=== PATIENT | male | born 1995 | race Caucasian/White ===

== ENCOUNTER 2025-01-01 14:04 | Outpatient (AMB) | payer OTHER, SELFPAY ==
--- NOTE | 2025-01-01 14:09 | MHC.PC.OV ---
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 Intake Note: New patient visit Rn Peritoneal Dialysis Required: No Allergies cefprozil (From Cefzil) Allergy (Mild, Verified 01/01/25 14:13) Itching Medication List - Last Reconciled 01/01/25 by Laurel De La Rosa MD escitalopram oxalate 20 mg PO DAILY esomeprazole magnesium 40 mg PO DAILY sertraline 25 mg PO DAILY Tobacco use date assessed: 01/01/25 Dental Screening Dental Screen Date: 01/01/25 Did you have a dental visit in the last 12 months?: Yes Did you have a dental problem in the last 6 months where you did not have access to dental care?: No Was dental information given to patient?: Patient has dentist HPI HPI Comments History of Present Illness Details This is a 29 year old male with a past medical history of GERD, anxiety presenting to reestablish care/physical exam. Transferring from [facility] GERD-on esomeprazole 40mg daily. previously saw by Dr Menon. Had endoscopy Anxiety: on lexapro. Feels like it is not working as good as it was or anxiety levels at work are higher. Working at [employer]. ROS see HPI PHYSICAL EXAM: GENERAL: Alert and oriented x 3. NAD EYES: EOMI. Anicteric. HENT: Moist mucous membranes. No scleral icterus. No cervical lymphadenopathy. LUNGS: Clear to auscultation bilaterally. CARDIOVASCULAR: Regular rate and rhythm. No murmur. No JVD. ABDOMEN: Soft, non-tender +bs EXTREMITIES: No edema. Non-tender. SKIN: No rashes or lesions. Warm. NEUROLOGIC: No focal neurological deficits. CN II-XII grossly intact PSYCHIATRIC: Cooperative. 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 1. Little interest or pleasure in doing things: not at all 2. Feeling down, depressed, or hopeless: several days 3. Trouble falling or staying asleep, or sleeping too much: several days 4. Feeling tired or having little energy: several days 5. Poor appetite or overeating: not at all 6. Feeling bad about yourself - or that you are a failure or have let yourself or your family down: several days 7. Trouble concentrating on things, such as reading the newspaper or watching television: several days 8. Moving or speaking so slowly that other people could have noticed. Or the opposite - being so fidgety or restless that you have been moving around a lot more than usual: several days 9. Thoughts that you would be better off or of hurting yourself in some way: not at all Total score: 6 Depression Screening Interpretation: Positive Depression Screening Follow-up: New Medication prescribed Depression Screening Done: Yes 98100 - PHQ-9 Billing: Yes Source: Developed by Drs. Doug Jackson, Pepper Driver, Bernardo Pardo and colleagues, with an educational rajan from [employer]. Thrive Questionnaire Date Thrive assessed: 12/31/24 I am a: Patient What is your living situation today?: I have a steady place to live Within the past 12 months, did the food you bought not last and you didn't have the money to get more?: Never true Within the past 12 months, did you worry whether your food would run out before you got money to buy more?: Never true Do you have trouble paying for medicines?: No Do you have trouble getting transportation to medical appointments?: No Do you have trouble paying your heating and electricity bill?: No Do you have trouble taking care of your child, family member or friend?: No Do you have trouble with day-to-day activities such as bathing, preparing meals, shopping, managing finances, etc.?: No Are you currently unemployed and looking for a job?: No Are you interested in more education?: Yes Please select the resources that you would like help with: None Currently or been in a relationship where the following occur: I choose not to answer THRIVE Score: 0 AUDIT C Alcohol Use Questionnaire (AUDIT-C) 2. How many drinks containing alcohol do you have on a typical day when you are drinking?: 1 or 2 Total Score: 0 GARCIA-7 AMB Questionnaire GARCIA-7 Feeling nervous, anxious, or on edge: 3 = Nearly every day Not being able to stop or control worryin = Nearly every day Worrying too much about different things: 3 = Nearly every day Trouble relaxin = Several days Being so restless that it is hard to sit still: 1 = Several days Becoming easily annoyed or irritable: 1 = Several days Feeling afraid as if something awful might happen: 1 = Several days Total GARCIA-7 score (0-4 normal; 5-9 mild; 10-14 moderate; 15-21 severe): 13 Source: Developed by Drs. Doug Jackson, Pepper Driver, Bernardo Pardo and colleagues, with an educational rajan from [employer]. Physical exam (Primary Care) Vital Signs: Last Vital Signs Temp 98.5 F 01/01/25 14:16 Pulse 113 H 01/01/25 14:16 Resp 14 01/01/25 14:16 BP 126/64 01/01/25 14:16 Pulse Ox 95 01/01/25 14:16 Oxygen Delivery Method Room Air 01/01/25 14:16 BMI result Body Mass Index 29.1 Tobacco/Smoking Status: Tobacco use Status Tobacco use date assessed 01/01/25 01/01/25 14:19 Patient Tobacco Use Status Never used Tobacco 01/01/25 14:19 e-Cigarette/Vaping Use Currently Using 01/01/25 14:19 PHQ-9: PHQ-9 Score PHQ-9: Total score 6 01/01/25 14:47 Depression Screening Interpretation: Positive Depression Screening Follow-up: New Medication prescribed Thrive Assessment: Date of Thrive Assessment Date Thrive assessed 12/31/24 01/01/25 14:12 Currently or been in a relationship where the following occur: I choose not to answer Coding Level of Care Code Est Pt Level 4 (44931) Diagnoses Physical exam Z00.00 Gastroesophageal reflux disease, unspecified whether esophagitis present K21.9 Esophagitis presence: esophagitis presence not specified Anxiety F41.9 Additional Codes PHQ-9 - 41652 - PHQ-9 Billing: Yes ([id number]) Assessment & Plan Assessment & Plan (1) Physical exam: Code(s): Z00.00 - Encounter for general adult medical examination without abnormal findings (2) GERD (gastroesophageal reflux disease): Code(s): K21.9 - Gastro-esophageal reflux disease without esophagitis Category: Medical Qualifiers: Esophagitis presence: esophagitis presence not specified Qualified Code(s): K21.9 - Gastro-esophageal reflux disease without esophagitis (3) Anxiety: Code(s): F41.9 - Anxiety disorder, unspecified Category: Medical Plan 29 y/o to reestablish/CPE Interval history reviewed Anxiety-suboptimal control. Decrease then stop lexapro. Start zoloft. Follow up in six weeks Preventive measures for age discussed Medications: New sertraline Take one half tab oral once daily for one week then increase to one tablet oral once daily 25 mg PO DAILY 90 tabs 3RF esomeprazole magnesium 40 mg PO DAILY 90 caps 3RF
[2025-01-01 14:16] VITALS: BP 126/64; PULSE 113; RESP 14; TEMP 36.9; O2SAT 95; BMI 29.1
== END 2025-01-01 14:43 | disposition home or self-care (01) ==
LOC: HO.HMCFM 14:05
PROVIDERS: PCP Internal Medicine; Visit Provider Internal Medicine
DX: Z00.00 Encounter for general adult medical examination without abnormal findings (principal); K21.9 Gastro-esophageal reflux disease without esophagitis; F41.9 Anxiety disorder, unspecified

== ENCOUNTER → 2025-01-01 14:04 | Outpatient (BNVA) | payer OTHER, SELFPAY | PROVIDERS: PCP Internal Medicine; Visit Provider Internal Medicine | DX: Z00.00 Encounter for general adult medical examination without abnormal findings (principal); Z76.89 Persons encountering health services in other specified circumstances; K21.9 Gastro-esophageal reflux disease without esophagitis; F41.9 Anxiety disorder, unspecified; Z79.899 Other long term (current) drug therapy; Z13.31 Encounter for screening for depression | CPT/HCPCS: 96127; 99212 ==

== ENCOUNTER 2025-03-07 15:46 | Outpatient (AMB) | payer OTHER, SELFPAY ==
--- NOTE | 2025-03-07 15:38 | A.OFFPC_ITS ---
Intake Visit Reasons: med follow up Intake Note: patient here for med follow up Echo Vascular Technologist Required: No Allergies cefprozil (From Cefzil) Allergy (Mild, Verified 03/07/25 15:39) Itching Tobacco use date assessed: 03/07/25 Dental Screening Dental Screen Date: 03/07/25 Did you have a dental visit in the last 12 months?: Yes Did you have a dental problem in the last 6 months where you did not have access to dental care?: No Was dental information given to patient?: Patient has dentist HPI HPI Comments History of Present Illness Details This is a 29 year old male with a past medical history of GERD, anxiety presenting for follow up GERD-on esomeprazole 40mg daily. this is stable. previously saw by Dr Menon. Had endoscopy Anxiety: Transitioned from lexapro to zoloft 25mg at last visit. He is feeling better on the medication would like to increase slightly. He still has trouble sleeping at night 2/2 anxiety, interested in hydroxyzine. Working at [employer]. 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 Current occupational exposures/hazards: No Cognitive needs: No Hearing needs: No Vision needs: No Questionnaire Thrive Questionnaire Date Thrive assessed: 12/31/24 I am a: Patient What is your living situation today?: I have a steady place to live Within the past 12 months, did the food you bought not last and you didn't have the money to get more?: Never true Within the past 12 months, did you worry whether your food would run out before you got money to buy more?: Never true Do you have trouble paying for medicines?: No Do you have trouble getting transportation to medical appointments?: No Do you have trouble paying your heating and electricity bill?: No Do you have trouble taking care of your child, family member or friend?: No Do you have trouble with day-to-day activities such as bathing, preparing meals, shopping, managing finances, etc.?: No Are you currently unemployed and looking for a job?: No Are you interested in more education?: Yes Please select the resources that you would like help with: None Currently or been in a relationship where the following occur: I choose not to answer THRIVE Score: 0 Physical exam (Primary Care) Tobacco/Smoking Status: Tobacco use Status Tobacco use date assessed 03/07/25 03/07/25 15:40 Patient Tobacco Use Status Never used Tobacco 03/07/25 15:40 e-Cigarette/Vaping Use Currently Using 03/07/25 15:40 Thrive Assessment: Date of Thrive Assessment Date Thrive assessed 12/31/24 03/07/25 15:40 Currently or been in a relationship where the following occur: I choose not to answer Telehealth Telehealth Telehealth Platform: Telephone Location of provider rendering services: practice address Location of patient: address on file Patient Identification confirmed using: Name, : Yes Telehealth method: voice only Patient verbally consented to treatment: Yes Patient verbally consented to billing insurance company: Yes Patient informed of any privacy concerns related to visit: Yes Minutes spent on Phone/Video with Pt.: 22 Coding Level of Care Code Tele Est Pt Level 3 (92517) Diagnoses Anxiety F41.9 Gastroesophageal reflux disease, unspecified whether esophagitis present K21.9 Esophagitis presence: esophagitis presence not specified Assessment & Plan Assessment & Plan (1) Anxiety: Code(s): F41.9 - Anxiety disorder, unspecified Category: Medical (2) GERD (gastroesophageal reflux disease): Code(s): K21.9 - Gastro-esophageal reflux disease without esophagitis Category: Medical Qualifiers: Esophagitis presence: esophagitis presence not specified Qualified Code(s): K21.9 - Gastro-esophageal reflux disease without esophagitis Plan Anxiety has improved with transition to zoloft. increase to 50mg daily. Insomnia, nightime anxiety-start hydroxyzine 25-50mg nightly prn Medications: New sertraline 50 mg PO Q24H 90 tabs 3RF hydroxyzine HCl 50 mg PO BEDTIME 90 tabs 3RF Discontinued sertraline Take one half tab oral once daily for one week then increase to one tablet oral once daily Discontinued Reason: Doctor's Order 25 mg PO DAILY 90 tabs 3RF
== END 2025-03-07 16:49 | disposition home or self-care (01) ==
LOC: HO.HMCFM 15:46
PROVIDERS: PCP Internal Medicine; Visit Provider Internal Medicine
DX: F41.9 Anxiety disorder, unspecified (principal); K21.9 Gastro-esophageal reflux disease without esophagitis

== ENCOUNTER 2025-05-10 14:33 | Outpatient (AMB) | payer OTHER, SELFPAY ==
--- NOTE | 2025-05-10 14:42 | A.OFFPC_ITS ---
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 this is stable. previously saw by Dr Menon. Had endoscopy Anxiety: Transitioned from lexapro to zoloft 25mg then increased to 50mg daily. Anxiety is improved. Does endorse low energy, some sexual side effects. Still not sleeping well, snoring, frequent awakenings ROS see HPI PHYSICAL EXAM: GENERAL: Alert and oriented x 3. NAD EYES: EOMI. Anicteric. 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 Current occupational exposures/hazards: No Cognitive needs: No Hearing needs: No Vision needs: No Questionnaire Thrive Questionnaire Date Thrive assessed: 12/31/24 I am a: Patient What is your living situation today?: I have a steady place to live Within the past 12 months, did the food you bought not last and you didn't have the money to get more?: Never true Within the past 12 months, did you worry whether your food would run out before you got money to buy more?: Never true Do you have trouble paying for medicines?: No Do you have trouble getting transportation to medical appointments?: No Do you have trouble paying your heating and electricity bill?: No Do you have trouble taking care of your child, family member or friend?: No Do you have trouble with day-to-day activities such as bathing, preparing meals, shopping, managing finances, etc.?: No Are you currently unemployed and looking for a job?: No Are you interested in more education?: Yes Please select the resources that you would like help with: None Currently or been in a relationship where the following occur: I choose not to answer THRIVE Score: 0 AUDIT C Alcohol Use Questionnaire (AUDIT-C) 1. How often do you have a drink containing alcohol?: Monthly or less 2. How many drinks containing alcohol do you have on a typical day when you are drinking?: 1 or 2 3. How often do you have six or more drinks on one occasion?: Never Total Score: 1 Physical exam (Primary Care) Vital Signs: Last Vital Signs Temp 97.9 F 05/10/25 14:43 Pulse 108 H 05/10/25 14:43 Resp 14 05/10/25 14:43 BP 135/88 05/10/25 14:43 Pulse Ox 95 05/10/25 14:43 Oxygen Delivery Method Room Air 05/10/25 14:43 BMI result Body Mass Index 33.1 Tobacco/Smoking Status: Tobacco use Status Tobacco use date assessed 05/10/25 05/10/25 14:48 Patient Tobacco Use Status Never used Tobacco 05/10/25 14:48 e-Cigarette/Vaping Use Currently Using 05/10/25 14:48 Thrive Assessment: Date of Thrive Assessment Date Thrive assessed 12/31/24 05/10/25 14:48 Currently or been in a relationship where the following occur: I choose not to answer Coding Level of Care Code Est Pt Level 4 (26833) Diagnoses Fatigue, unspecified type R53.83 Fatigue type: unspecified Snoring R06.83 Anxiety F41.9 Assessment & Plan Assessment & Plan (1) Fatigue: Code(s): R53.83 - Other fatigue Category: Medical Qualifiers: Fatigue type: unspecified Qualified Code(s): R53.83 - Other fatigue (2) Snoring: Code(s): R06.83 - Snoring Category: Medical (3) Anxiety: Code(s): F41.9 - Anxiety disorder, unspecified Category: Medical Plan 29 year old presenting for follow up Snoring, fatigue-sleep study ordered Anxiety-stable on zoloft. Add wellbutrin Labs ordered Orders: Orders Testosterone, Free/Total Today F41.9 - Anxiety disorder, unspecified, R06.83 - Snoring, R53.83 - Other fatigue, Z13.220 - Encounter for screening for lipoid disorders Complete Blood Count Auto Diff Today F41.9 - Anxiety disorder, unspecified, R06.83 - Snoring, R53.83 - Other fatigue, Z13.220 - Encounter for screening for lipoid disorders IRON PROFILE Today F41.9 - Anxiety disorder, unspecified, R06.83 - Snoring, R53.83 - Other fatigue, Z13.220 - Encounter for screening for lipoid disorders Comprehensive Met. Panel Today F41.9 - Anxiety disorder, unspecified, R06.83 - Snoring, R53.83 - Other fatigue, Z13.220 - Encounter for screening for lipoid disorders Lipid Panel Today F41.9 - Anxiety disorder, unspecified, R06.83 - Snoring, R53.83 - Other fatigue, Z13.220 - Encounter for screening for lipoid disorders Vitamin B12 and Folate Today F41.9 - Anxiety disorder, unspecified, R06.83 - Snoring, R53.83 - Other fatigue, Z13.220 - Encounter for screening for lipoid disorders TSH reflex Free T4 Today F41.9 - Anxiety disorder, unspecified, R06.83 - Snoring, R53.83 - Other fatigue, Z13.220 - Encounter for screening for lipoid disorders Hemoglobin A1c Today R35.89 - Other polyuria Referrals Sleep Medicine Referral F41.9 - Anxiety disorder, unspecified, R06.83 - Snoring, R53.83 - Other fatigue, Z13.220 - Encounter for screening for lipoid disorders Medications: New bupropion HCl 75 mg PO DAILY 30 tabs 0RF
[2025-05-10 14:43] VITALS: BP 135/88; PULSE 108; RESP 14; TEMP 36.6; O2SAT 95; BMI 33.1
== END 2025-05-10 17:05 ==
LOC: HO.HMCFM 14:34
PROVIDERS: PCP Internal Medicine; Visit Provider Internal Medicine
DX: R53.83 Other fatigue (principal); R06.83 Snoring; F41.9 Anxiety disorder, unspecified

== ENCOUNTER → 2025-05-10 14:33 | Outpatient (BNVA) | payer OTHER, SELFPAY | PROVIDERS: PCP Internal Medicine; Visit Provider Internal Medicine | DX: R06.83 Snoring (principal); F41.9 Anxiety disorder, unspecified; R53.83 Other fatigue | CPT/HCPCS: 99212 ==

== ENCOUNTER 2025-05-17 07:45 | Outpatient (AMB) | payer OTHER, SELFPAY ==
--- NOTE | 2025-05-17 07:49 | MHC.OFFVIS ---
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 not sleeping well, snoring, frequent awakenings Screw Machine Repairer Required: No Accompanied by: Self / Same As Patient Allergies cefprozil (From Cefzil) Allergy (Mild, Verified 05/17/25 07:50) Itching HPI Comments Details: 29 year old male presents for an evaluation of YASMIN referred to us by his PCP Dr. Smalls. For the last 5 months, since moving in with his fiance, she notices he snores loudly and has pauses in his sleep. He wakes up multiple times due to vivid dreams and talks in his sleep. He flails his arms, his fiance pushes him back onto his side. He tried the breath right strips with mute plugs to open up the nasal passages which eliminated some snoring. He is chronically fatigued when he wakes up in the morning, and naps for one hour on the weekends. He has bruxism and tried a mouth guard however could not tolerate it. He has GERD for 5 years now and it is managed with omeprazole 40mg, this used to keep him up at night. 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 Memory is stable, will forget tasks if and when overwhelmed due to multitasking. He vapes nicotine daily, denies mj, edibles, alcohol. He denies morning headaches, nocturia, RLS, A/V hallucinations. FH Dad+ dementia at 56. 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 Current occupational exposures/hazards: No Cognitive needs: No Hearing needs: No Vision needs: No Physical Exam Vital Signs: Last Vital Signs Pulse 84 05/17/25 07:50 BP 128/90 H 05/17/25 07:50 Pulse Ox 98 05/17/25 07:50 Oxygen Delivery Method Room Air 05/17/25 07:50 BMI result Body Mass Index 33.2 Const General: cooperative, comfortable and anxious Nutritional Appearance: average body habitus Orientation/consciousness: patient oriented x3 HEENT Face and sinus: Yes face symmetric Teeth and gingiva: other (mallampti score is 4) Eyes Pupils: Equal, round and reactive pupils present Neck Neck: Yes full ROM Resp Effort & Inspection: normal respiratory effort and able to speak in complete sentences Neuro Other: Bilateral upper extremity coarse tremors l>r with arms extended. General: patient oriented x3 and moves all extremities Cranial nerves: Yes Equal, round and reactive pupils present, Yes Normal facial strength present, Yes Midline tongue present, Yes Ability to bilaterally rotate head present and Yes Ability to bilaterally elevate shoulders present Cognition (Neuro): normal cognition Gait exam (Neuro): Normal gait present Motor exam (neuro): 5/5 motor strength present throughout and Normal motor muscle tone present throughout Psych Appearance: grossly normal Affect: Anxious affect present Thought process: Normal thought process present Results Reviewed Results Reviewed: PCP note December and 2024 Assessment & Plan Assessment & Plan (1) Excessive daytime sleepiness: Code(s): G47.19 - Other hypersomnia Category: Medical (2) Chronic fatigue: Code(s): R53.82 - Chronic fatigue, unspecified Category: Medical (3) Loud snoring: Code(s): R06.83 - Snoring Category: Medical Plan HST to r/o yasmin Labs request from PCP to r/o deficiencies, anemias, thyroid issues. 3month f/u Orders: Orders RT home sleep study Today G47.19 - Other hypersomnia Patient Instructions: Please complete the following fasting labs to rule out deficiencies. CBC/CMP/ B12/ Vit D/ TSH/ Homocysteine and MMA/ Ferritin. Sleep Hygiene provided: set a scheduled bedtime and wake time to help regulate the circadian rhythm and balance the release of pituitary hormones. Sleep in a dark room, temperatures below 68 degrees, and no devices n bed. Limit caffeinated products 6 hours prior to bed, and limit fluids 2-4 hours prior to bed. Gentle night yoga, diffusing essential oils, and playing soft music can be relaxing. Coding Level of Care Code New Pt Level 4 (82838) Diagnoses Excessive daytime sleepiness G47.19 Chronic fatigue R53.82 Loud snoring R06.83 Sleep Questionnaire Difficulty falling asleep: No Difficulty staying asleep?: Yes Number of arousals: 2-3 Snoring: Yes Witnessed apneas: Yes Gasping arousals: No Nocturia: No GERD: Yes Vivid dreams: Yes Acting out dreams: Yes Abnormal behavior in sleep: Yes (talking) Abnormal movements in sleep: Yes Morning headaches: No Excessive daytime sleepiness: Yes Daytime naps: No Restless legs: No Hallucinations: No Sleep paralysis: No Drop attacks: No Sleep Study: No CPAP: No
[2025-05-17 07:50] VITALS: BP 128/90; PULSE 84; O2SAT 98; BMI 33.2
== END 2025-05-17 08:34 | disposition home or self-care (01) ==
PROVIDERS: PCP Internal Medicine; Visit Provider Physician Assistant Medical
DX: G47.19 Other hypersomnia (principal); R53.82 Chronic fatigue, unspecified; R06.83 Snoring
CPT/HCPCS: 99204

== ENCOUNTER → 2025-05-17 07:45 | Outpatient (BNVA) | payer OTHER, SELFPAY | PROVIDERS: PCP Internal Medicine; Visit Provider Physician Assistant Medical | DX: R06.83 Snoring (principal); G47.19 Other hypersomnia; R53.82 Chronic fatigue, unspecified | CPT/HCPCS: 99202 ==